=== PATIENT | female | born 1990 | race African-American/Black ===

== ENCOUNTER 2017-08-19 08:04 | Day surgery (SDC) | payer OTHER ==
[2017-08-19] MEDS ORDERED: Ringers Lactate 1,000 ML IV ONE ×4 (08:15→15:42)
[2017-08-19] MEDS ORDERED: SCOPOLAMINE HYDROBROMIDE PATCH TD ONE (08:15)
[2017-08-19] MEDS ORDERED: CEFAZOLIN/SWI 1gm 1 GM/10 ML SYR ONE (08:15)
[2017-08-19] MEDS ORDERED: PROPOFOL 200 MG/20 ML VIAL IV ONE (08:18)
[2017-08-19] MEDS ORDERED: LIDOCAINE 2% MPF 5 ML VIAL ONE (08:19)
[2017-08-19] MEDS ORDERED: FENTANYL CITR 250 MCG/5 ML ONE (08:19)
[2017-08-19] MEDS ORDERED: GLYCOPYRROLATE 0.2 MG/ML SYR ONE ×2 (08:19)
[2017-08-19] MEDS ORDERED: ROCURONIUM 50 MG/5 ML VIAL IV ONE ×2 (08:20→10:48)
[2017-08-19] MEDS ORDERED: ONDANSETRON HCL 40 MG/20 ML VIAL ONE (08:21)
[2017-08-19] MEDS ORDERED: NEOSTIGMINE 1 MG/ML -5 ML SYRINGE ONE (08:22)
[2017-08-19 08:30] LABS: Specific Gravity > 1.030 (1.005-1.030)
[2017-08-19] MEDS ORDERED: GENTAMICIN SULF 80 MG/2ML INJ ONE (08:35)
[2017-08-19] MEDS ORDERED: Mastisol Adhesive Liq ONE (08:35)
[2017-08-19] MEDS ORDERED: CEFAZOLIN SODIUM 1 GM/VIAL ONE (08:35)
[2017-08-19] MEDS ORDERED: BACITRACIN 50000 UNIT VIAL ONE (08:36)
[2017-08-19] MEDS ORDERED: NS 0.9% VIAL 20 ML ONE (08:37)
[2017-08-19] MEDS ORDERED: MIDAZOLAM HCL 2 MG/2 ML INJ ONE (08:52)
[2017-08-19] MEDS ORDERED: DEXAMETHASONE 10 MG/ML VIAL ONE (10:14)
[2017-08-19] MEDS ORDERED: MORPHINE 10 MG/ML VIAL ONE (10:16)
[2017-08-19] MEDS ORDERED: FENTANYL CITR 100 MCG/2 ML ONE (10:48)
[2017-08-19] MEDS ORDERED: EPHEDRINE SULF 50 MG/ML SYR ONE (11:04)
[2017-08-19] MEDS ORDERED: KETOROLAC 30 MG/ML INJ ONE (14:59)
[2017-08-19] MEDS: MEPERIDINE HCL 25 MG/0.5 ML ONE ×2 (15:35→15:45)
[2017-08-19] MEDS ORDERED: PROMETHAZINE 25 MG/ML VIAL ONE (15:48)
[2017-08-19] MEDS ORDERED: HYDROCODONE/APAP 10/325 TAB ONE (17:32)
--- NOTE | 2017-08-22 11:42 | OP ---
Surgeon: Franky Ly MD [employer]: Dominic. Preoperative Diagnosis: Breast descent. Postoperative Diagnosis: Breast descent. Procedure Performed: Breast lift. Anesthesia: General. Description Of Procedure: After satisfactory induction of general seizure, the breasts were prepped with DuraPrep, and dry sterile drapes applied in the usual manner. The right breast approached first . A 42 template was used to outline the right areola. Then, a transverse and curvilinear inferior i ncisions were made. The intervening skin was de-epithelialized with dermabrader or EpiCut. Electroc autery was used to dissect down and flaps elevated toward the sternum, clavicle, and anterior axillar y line. About 1.3 cm thick. The patient then had the pectoral dissection done with electrocautery a nd then the inferior incision made. The de-epithelized flap was formed into a cone with 2-0 PDS sutu re and the straps were elevated at 12 o'clock, 1:30, and 3 o'clock position and then the straps were woven in and out pectoral major muscle back to the base of the cone, back to themselves tied with 2-0 PDS. The 3 o'clock strap was sewn to the 3 o'clock position with 2-0 Ethibond. Was carefully stapl ed shut. Left side was done in a mirror image manner. We returned to the right side. We irrigated the wound with antibiotic solution. A 10 GER brought out the axilla and sewn in place with 2-0 silk a nd the wound was reshaped as needed and closed with 3-0 Vicryl subcu, 3-0 PDS running subcuticular ti ed in the vertical meridian of the breast. Left side done in the identical manner. The patient was sat up. Site for new nipple-areolar complex was marked out and the tissue was excised. Nipple was d elivered and then sewn with interrupted 4-0 PDS followed by 4-0 PDS running subcuticular. Tincture o f benzoin, Steri-Strips, 5 x 5s, fluffs, Surjit wrap. The patient tolerated the procedure well and returned to recovery room. The patient had about 56 g removed from the right and 12 g from the left. GH/MODL Voice ID: [id number] Report ID: [id number]
== END 2017-08-19 19:06 | disposition home or self-care (01) ==
LOC: PRE 08:04
PROVIDERS: ATTEND Specialist
PROC: 0H0V0ZZ Alteration of Bilateral Breast, Open Approach (ICD-10-PCS; principal; 2017-08-19 09:00)
DX: N64.81 Ptosis of breast (principal)
CPT/HCPCS: 81025; 88305; J0690; J1100; J1580; J2175; J2250; J2405; J2550; J2710; J3010